=== PATIENT | female | born 1985 | race Caucasian/White ===

== ENCOUNTER 2017-03-09 04:15 | Emergency (ER) | payer OTHER ==
[2017-03-09 04:44] LABS: URINE APPEARANCE CLEAR; URINE BILIRUBIN NEG (NEG); URINE BLOOD NEG (NEG); URINE COLOR YELLOW; URINE GLUCOSE NEG (NEG); URINE KETONE TRACE (NEG); URINE LEUKOCYTE ESTERASE NEG (NEG); URINE NITRATE NEG (NEG); URINE PROTEIN NEG (NEG); URINE SPECIFIC GRAVITY 1.038 (1.003-1.035)
[2017-03-09 04:54] LABS: CULTURE INDICATED? NO
[2017-03-09 05:05] LABS: CREATININE SERUM 0.7 mg/dL (0.6-1.4); GLOM FILT RATE Estimated 115.5 mL/min (>60); POTASSIUM 3.6 mmol/L (3.5-5.1)
== END 2017-03-09 05:56 | disposition home or self-care (01) ==
LOC: CED 04:15
PROVIDERS: Nurse Practitioner Family
DX: R10.9 Unspecified abdominal pain (principal); F41.9 Anxiety disorder, unspecified
CPT/HCPCS: 36415; 80048; 81003; 84703; 99284

== ENCOUNTER → 2017-04-24 | Outpatient (CLI) | payer OTHER ==
--- NOTE | ~2017-04-24 | US77 ---
[facility] A Service of [facility] & [facility] / [facility] RADIOLOGY TEXT RESULTS PATIENT: MAYTE FRAZIER LOCATION: [facility] : 85 UNIT #: [id number] AGE: [address]: Nigel Lepe MD SEX: F ORDER DR: [id number] [facility] [address] [place], [place] [address] [id number] O MR#: [id number] Acc #: [id number] NAME: MAYTE FRAZIER : 1985 SEX: F STUDY DATE/TIME: 04/24/2017 14:14 UNIT: [facility] ROOM: STUDY DESCRIPTION: US Kidney Bilateral Complete Attending Physician: Nigel Lepe M.D. Ordering Physician: Nigel Lepe M.D. Primary Care Physician: Nigel Lepe M.D. MEDICAL IMAGING REPORT This report is preliminary unless electronic signature is present EXAM Renal ultrasound, 04/24/17. HISTORY Low back pain and bilateral flank pain for 3 months. FINDINGS The right kidney measures 10.5 cm while the left kidney measures 10.3 cm in longitudinal dimensions. There is no evidence of hydronephrosis or nephrolithiasis. No cystic or solid mass lesions were seen on either kidney and there is normal renal cortical echogenicity. Images of the bladder are normal. IMPRESSION 1. Negative renal ultrasound. 2. Images of the bladder are normal. Dictated by... Tom Guerrero M.D. THIS IS AN ELECTRONICALLY VERIFIED REPORT Tom Guerrero M.D. at 04/25/2017 8:29 AM ALEXIS/jolanta TD: 04/24/2017 18:41 JOB #: [id number] MEDICAL IMAGING REPORT Page 1 of 1 COPY
== END | disposition home or self-care (01) ==
LOC: CWCC 13:54
DX: M54.5 Low back pain (principal); F31.32 Bipolar disorder, current episode depressed, moderate; H53.143 Visual discomfort, bilateral; Z79.899 Other long term (current) drug therapy; Z87.891 Personal history of nicotine dependence
CPT/HCPCS: 76770

== ENCOUNTER 2017-05-04 12:09 | Emergency (ER) | payer OTHER | END 2017-05-04 14:20 | disposition left against medical advice (07) | LOC: CFTX 12:09 → CED 12:09 | DX: Z53.21 Procedure and treatment not carried out due to patient leaving prior to being seen by health care provider (principal) ==

== ENCOUNTER 2017-05-04 15:51 | Emergency (ER) | payer OTHER | END 2017-05-04 17:48 | disposition home or self-care (01) | LOC: CFTX 15:51 → CED 15:51 → CFTX 17:30 | DX: L25.9 Unspecified contact dermatitis, unspecified cause (principal) | CPT/HCPCS: 99283 ==

== ENCOUNTER 2017-06-10 22:17 | Emergency (ER) | payer OTHER ==
[~2017-06-10] VITALS: Ht 157.5 cm; Wt 57.6 kg
== END 2017-06-10 23:30 | disposition left against medical advice (07) ==
LOC: CED 22:17
DX: Z53.21 Procedure and treatment not carried out due to patient leaving prior to being seen by health care provider (principal)